=== PATIENT | female | born 1965 | race Caucasian/White ===

== ENCOUNTER 2021-01-13 20:20 | Emergency (ER) | payer OTHER ==
[2021-01-13 20:27] VITALS: RESP 20
[2021-01-13] MEDS ORDERED: methocarbamoL 500 MG TAB PO STA (20:52)
[2021-01-13] MEDS ORDERED: KETOROLAC 15 MG/ML 1 ML VIAL IVP STA (20:52)
[2021-01-13] MEDS ORDERED: MORPHINE SULFATE 4 MG/ML SYRINGE IVP STA (20:52)
--- NOTE | 2021-01-13 21:58 | CT ---
EXAMINATION TYPE: CT brain sravanine wo con DATE OF EXAM: 01/13/2021 COMPARISON: None available. HISTORY: fall, pain CT DLP: 1847.9 mGycm Automated exposure control for dose reduction was used. TECHNIQUE: CT scan of the head and cervical spine are performed without contrast. FINDINGS: There is no acute intracranial hemorrhage, mass effect, or midline shift identified. The ventricles and sulci are within normal limits in size. The globes are intact and the visualized sin uses are clear. Cervical spine is visualized in its entirety from C1 through upper thoracic levels and demonstrates s atisfactory alignment without evidence of acute fracture or dislocation. Prevertebral soft tissue ap pears within normal limits. The C1-C2 articulation is unremarkable. IMPRESSION: 1. There is no acute fracture or dislocation evident in the cervical spine. 2. No acute intracranial hemorrhage, mass effect, or midline shift is seen.
--- NOTE | 2021-01-13 22:04 | CT ---
EXAMINATION TYPE: CT lumbar spine wo con DATE OF EXAM: 01/13/2021 9:48 PM COMPARISON: None available. HISTORY: fall, pain CT DLP: 1981.6 mGycm Automated exposure control for dose reduction was used. Unenhanced CT of the lumbar spine was performed. Bone and soft tissue window settings are submitted as well as coronal and sagittal reconstructions. There is no acute fracture or subluxation of the lumbar spine. The vertebral body heights are maintai virgilio. There is mild disc height narrowing at L5-S1, otherwise the disc heights are grossly maintained. No significant paraspinal soft tissue abnormality. IMPRESSION: No acute abnormality or significant spondylosis.
--- NOTE | 2021-01-13 22:05 | XR ---
Result: Clinical History: Pain. Comparison: None available. Technique: 3 views of the right shoulder. Findings: The bone mineralization is appropriate for age. No acute fracture or dislocation is seen. The acromioclavicular and glenohumeral joints demonstrate mild degenerative changes. The humeral head is well-seated in the glenoid. Impression: No acute osseous abnormality.
--- NOTE | 2021-01-13 22:11 | XR ---
RESULT: HISTORY: fall, pain TECHNIQUE: 3 views of the right knee. 3 views of the right ankle. 3 views of the right foot. COMPARISON: None. FINDINGS: Right knee: There is no acute fracture or dislocation. 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 There is small knee joint effusion. Right ankle: There is no acute fracture or dislocation. There is a 5 mm well-corticated ossific densi ty adjacent to the lateral malleolus, consistent with remote posttraumatic change. The ankle mortise is congruent. Right foot: There is no acute fracture or dislocation. There are small plantar and dorsal calcaneal e nthesophytes. IMPRESSION: No acute osseous abnormality of the right knee, ankle or foot. Remote posttraumatic and degenerative changes as above.
--- NOTE | 2021-01-13 22:32 | ED ---
General Adult HPI - General Chief complaint: Fall Stated complaint: Fall Time Seen by Provider: 01/13/21 20:28 Source: patient, EMS, RN notes reviewed, old records reviewed Mode of arrival: EMS - History of Present Illness Initial comments: Patient is a 55-year-old female with past medical history remarkable for diabetes, hypertension, hyperlipidemia presents emergency Department following a fall from standing. Patient was going to the bathroom and the campsite when she tripped over a step and fell forward. She states that she believes she hit the top of her head on the wall bathroom stall. She twisted her knee and fell her back twisted as well. She denies any loss of consciousness. Denies any syncopal episode. Denies any chest pain, abdominal pain, nausea or vomiting. Denies any amnesia. She was unable to ambulate at the scene afterwards secondary to pain in her right knee. She is currently complaining of bilateral lower back pain, right knee pain, right ankle pain, as well as neck pain. Patient is in a cervical collar. She is not on blood thinners. She is no other acute complaint at this time. Patient is up-to-date on her tetanus vaccination. Patient endorses a mild headache, denies any change in vision. - Related Data Previous Rx's Medication Instructions Recorded Ibuprofen [Motrin] 800 mg PO Q8H 7 Days #21 tab 01/13/21 Lidocaine 5% Patch [Lidoderm 5% 1 patch TOPICAL DAILY 7 Days #7 01/13/21 Patch] patch Methocarbamol [Robaxin-750] 1,500 mg PO Q8HR PRN 7 Days #42 01/13/21 tablet Allergies Allergy/AdvReac Type Severity Reaction Status Date / Time Sulfa (Sulfonamide Allergy Unknown Verified 01/13/21 21:04 Antibiotics) Review of Systems ROS Statement: Those systems with pertinent positive or pertinent negative responses have been documented in the HPI. Review of Systems: CONST: Denies fever EYES: Denies blurry vision ENT: Denies nasal congestion C/V: Denies Chest pain RESP: Denies shortness of breath GI: Denies abdominal pain : Denies dysuria SKIN: Denies rash. MSK: Endorses joint pain NEURO:. Endorses mild headache ROS Other: All systems not noted in ROS Statement are negative. Past Medical History Past Medical History: Asthma, Hyperlipidemia, Hypertension History of Any Multi-Drug Resistant Organisms: None Reported Past Surgical History: Section, Cholecystectomy, Hysterectomy Past Psychological History: No Psychological Hx Reported Smoking Status: Never smoker Past Alcohol Use History: Occasional Past Drug Use History: None Reported General Exam - General Exam Comments Initial Comments: General: Appears in mild distress secondary to pain. HEAD: Normal with no signs of head trauma. No colbert sign. Negative raccoon eyes. Patient is no obvious step-offs or deformities of the skull. She is no facial tenderness to palpation. EYES: PERRLA, EOMI, conjunctiva normal, no discharge. Pupils are 3 mm and equal bilaterally. ENT: Hearing grossly intact, normal oropharynx. RESPIRATORY: Clear breath sounds bilaterally. No wheezes, rales, or rhonchi. C/V: Patient is mildly tachycardic, likely secondary to pain. S1 and S2 auscultated. No peripheral edema. Peripheral pulses are 2+ and intact throughout. ABD: Abd is soft, nontender, nondistended EXT: Patient has primarily bilateral lateral cervical spine tenderness to palpation. There is minimal midline tenderness palpation of the cervical spine. There is no thoracic spine tenderness palpation. There is paraspinal muscle tenderness to palpation of the lumbar spine with minimal midline tenderness tenderness as well. Pelvis is stable. Patient does have some mild left shoulder and is to palpation, primarily over the anterior aspect with no reduced range of motion. Chest has some right knee tenderness palpation over the patella as well as bilateral joint lines which is acute on chronic, with reduced range of motion secondary to pain. She also has medial malleolar tenderness to palpation and mild foot tenderness to palpation. She is normal range of motion. SKIN: Patient is a small abrasion located over the anterior aspect of her right patella. NEURO: Alert and oriented 4. No focal sensory strength deficits. Cranial nerves II through XII are intact. Cerebellar function is intact as normal finger to nose testing. GCS is 15. Course Vital Signs 01/13/21 01/13/21 20:22 20:27 Temperature 98.2 F Pulse Rate 107 H 101 H Respiratory 20 20 Rate Blood Pressure 181/102 182/90 O2 Sat by Pulse 98 98 Oximetry Medical Decision Making - Medical Decision Making Based on the patient's presentation and physical exam, I'm concerned for possible acute bony tract injury the patient's left shoulder, right lower extremity, cervical spine, lumbar spine. She does not necessarily meet criteria for CT imaging of the head, however discussed with the patient's physician was made to obtain a CT head as well. We will also obtain a CT C-spine, lumbar spine was x-rays of the shoulder, right knee, right ankle and foot. She'll be given analgesia with morphine, Robaxin, Toradol. Patient was in agreement this plan. Patient's imaging is negative for acute fracture or subluxation. Patient's CT imaging shows no acute intracranial process, as well as normal CT imaging of the lumbar spines, cervical spine. .Screening EKG was obtained in triage. It showed no acute signs of ischemia. On reevaluation and patient is feeling improved. I was able to clear the patient's cervical spine and cervical collar was removed. She has paraspinal muscle tenderness from the fall. Patient is able to stand and ambulate. She still has some right knee soreness, and therefore we will provide an FELICITA bandage wrap. She refuses crutches. I believe it is safe for her to be discharged home at this time. She was in agreement this plan. Pain overall is improved I will provide the patient with a prescription for Robaxin, ibuprofen, lidocaine patch.. I instructed the patient to follow up with their PCP in the next 3 days. she does not require orthopedic surgery follow-up as she already has an orthopedic doctor.. I explained that the patient should return to the emergency department if they experience any worsening symptoms. Strict return precautions were discussed with the patient. The patient expressed understanding of these instructions. I answered all questions that the patient had. The patient was discharged home in fair condition with their prescriptions and follow up information. - EKG Data -: EKG Interpreted by Me EKG Comments: 12-lead Electrocardiogram Interpretation Note EKG was reviewed and interpreted by myself. 12-lead ECG performed at 2030 is interpreted by me as revealing normal sinus rhythm at a rate of 97 beats per minute. [place] is normal. RI interval is 132 ms, QRS duration is 140 ms, QTc is 4-90 ms.. There were no ST or T wave abnormalities to suggest myocardial ischemia or injury. R wave progression across the precordium was satisfactory. By my interpretation this EKG is non-diagnostic for acute ischemia. There is a right bundle-branch block. Disposition Clinical Impression: Fall, Musculoskeletal pain Disposition: HOME SELF-CARE Condition: Fair Instructions (If sedation given, give patient instructions): Fall Prevention (ED) Prescriptions: Lidocaine 5% Patch [Lidoderm 5% Patch] 1 patch TOPICAL DAILY 7 Days #7 patch Ibuprofen [Motrin] 800 mg PO Q8H 7 Days #21 tab Methocarbamol [Robaxin-750] 1,500 mg PO Q8HR PRN 7 Days #42 tablet PRN Reason: Pain Is patient prescribed a controlled substance at d/c from ED?: No Referrals: Nonstaff,Physician [Primary Care Provider] - 1-2 days
[2021-01-13 23:07] VITALS: BP 171/76; PULSE 99; TEMP 98
== END 2021-01-13 22:35 | disposition home or self-care (01) ==
LOC: EC 20:20
DX: S80.211A Abrasion, right knee, initial encounter (principal); M79.18 Myalgia, other site; R51.9 Headache, unspecified; M54.5 Low back pain; M25.571 Pain in right ankle and joints of right foot; M54.2 Cervicalgia; I10 Essential (primary) hypertension; J45.909 Unspecified asthma, uncomplicated; E11.9 Type 2 diabetes mellitus without complications; E78.5 Hyperlipidemia, unspecified; Z88.2 Allergy status to sulfonamides; Z90.49 Acquired absence of other specified parts of digestive tract; W10.9XXA Fall (on) (from) unspecified stairs and steps, initial encounter; W22.01XA Walked into wall, initial encounter; X50.1XXA Overexertion from prolonged static or awkward postures, initial encounter
CPT/HCPCS: 73030; 73562; 73610; 73630; 72125; 72131; 70450; 99285; 96374; 96375; J2270; J1885